=== PATIENT | female | born 1970 | race Caucasian/White ===

== ENCOUNTER → 2020-11-19 | Outpatient (CLI) | payer BC ==
[~2020-11-19] MED LIST: BUPIVACAINE MPF 0.5% 10 ML VIAL. INT ART ONE; CONTRAST GIVEN. MC PRN; IOHEXOL 180 MG/ML 10 ML VIAL. INT ART ONE; LEVO112T2 PO; LIDOCAINE 1% Multi-Dose 20 ML VIAL. ID ONE; OLME1TAB21 PO; PARO10TA57 PO; methylPREDNISolone ACETATE 40 MG/ML VIAL. INT ART ONE
--- NOTE | 2020-11-20 08:49 | KCIC ---
Right hip steroid injection under fluoroscopy 11/19/2020 CLINICAL HISTORY: Chronic right hip pain. Right hip osteoarthritis. TECHNIQUE: After the risks and benefits of the procedure were explained to the patient, written infor med consent was obtained. The skin surface of the anterior right hip was prepped and draped in steril e fashion. 1 percent lidocaine was used as a local anesthetic. Under fluoroscopic guidance a 22-gauge spinal needle was advanced into the anterior aspect of the right hip joint. Intra-articular position of the needle was confirmed with 3 cc of Omnipaque 180. Following this a solution of 2 cc of bupivac gillian, 1 cc of lidocaine and 80 mg of Depo-Medrol were injected through the needle into the right hip. Following this the needle was removed and hemostasis was achieved at the puncture site. A sterile ba ndage was placed on the skin puncture site. The patient tolerated the procedure well and there were n o immediate complications. The total fluoroscopic time for this study is 27 seconds. 1 fluoroscopic c aptured AP digital radiograph of the right hip was obtained. IMPRESSION: Technically successful fluoroscopically guided steroid injection of the right hip as disc ussed above. Electronically signed by: Paco Dunn MD (11/20/2020 8:47 AM) [id number]
== END | disposition home or self-care (01) ==
LOC: KCIC 12:32
PROVIDERS: ATTEND Orthopaedic Surgery
DX: M16.11 Unilateral primary osteoarthritis, right hip (principal); I10 Essential (primary) hypertension; M25.511 Pain in right shoulder
CPT/HCPCS: 20610; 77002; J1030; J3490; Q9965